=== PATIENT | female | born 1965 | race Caucasian/White ===

== ENCOUNTER 2016-10-11 10:25 | Emergency (ER) | payer OTHER ==
[2016-10-11] MEDS ORDERED: Albuterol-Ipratrop 3 mg / 0.5 (3 ml) UD ONE (10:59)
[2016-10-11] MEDS ORDERED: Albuterol-Ipratrop 3 mg / 0.5 (3 ml) UD INH STA (11:26)
[2016-10-11] MEDS ORDERED: Aluminum Hydroxide/Magnesium Hydroxide Susp (30 mL) PO STA (11:27)
[2016-10-11] MEDS ORDERED: Aluminum Hydroxide/Magnesium Hydroxide Susp (30 mL) ONE (11:33)
--- NOTE | 2016-10-11 12:11 | RAD ---
HISTORY: cough pleuritic cp COMPARISON: None available TECHNIQUE: Chest PA and lateral FINDINGS: Examination limited by habitus. LUNGS: No focal consolidation. Please note that chest x-ray has limited sensitivity for the detection of pulmonary masses. PLEURA: No significant pleural effusion identified. No definite pneumothorax . CARDIOVASCULAR: Cardiomegaly. OSSEOUS STRUCTURES: Degenerative changes of the spine. VISUALIZED UPPER ABDOMEN: Mild elevation of the right hemidiaphragm. OTHER FINDINGS: None. IMPRESSION: Cardiomegaly.
[2016-10-11 12:36] VITALS: TEMP 97.6
[2016-10-11] MEDS ORDERED: Sodium Chloride 0.9% Inh Soln (3mL) UD INH ONE (12:49)
--- NOTE | 2016-10-11 13:14 | C.PDOC ---
History Of Present Illness 51 yr old female with PMHx of HTN, presents to the ER with complaints of cough, SOB while coughing, chest pain, chest tightness and back pain for the past 2 days. Patient also reports of feeling warm and myalgias. Patient states she has not taken any medicine for the symptoms and denies any sick contact. Also denies fever, chills, nausea, vomiting, abdominal pain, diarrhea, dysuria, weakness or numbness. Time Seen by Provider: 10/11/16 11:13 Chief Complaint (Nursing): Cough, Cold, Congestion History Per: Patient History/Exam Limitations: no limitations Onset/Duration Of Symptoms: Days (2) Current Symptoms Are (Timing): Still Present Sick Contacts (Context): None Past Medical History Reviewed: Historical Data, Nursing Documentation, Vital Signs Vital Signs: Last Vital Signs Temp 97.6 F 10/11/16 12:36 Pulse 78 10/11/16 14:15 Resp 18 10/11/16 14:15 BP 142/75 10/11/16 14:15 Pulse Ox 97 10/11/16 15:03 - Medical History PMH: Anxiety, HTN, Hyperlipidemia (DIET CONTROLLED PER PT) Family History: States: No Known Family Hx - Social History Hx Alcohol Use: No Hx Substance Use: No - Immunization History Hx Tetanus Toxoid Vaccination: No Hx Influenza Vaccination: No Hx Pneumococcal Vaccination: No Review Of Systems Except As Marked, All Systems Reviewed And Found Negative. Constitutional: Negative for: Fever, Chills Cardiovascular: Positive for: Chest Pain, Other ((+) Chest tightness) Respiratory: Positive for: Cough, Shortness of Breath (While coughing ) Gastrointestinal: Negative for: Nausea, Vomiting, Abdominal Pain, Diarrhea Genitourinary: Negative for: Dysuria Musculoskeletal: Positive for: Back Pain Neurological: Negative for: Weakness, Numbness Physical Exam - Physical Exam Appears: Well, Non-toxic, Other (Uncomfortable) Skin: Warm, Dry, No Rash Head: Atraumatic, Normacephalic Ear(s): Bilateral: Normal Oral Mucosa: Moist Throat: Normal, No Erythema, No Exudate, No Drooling Neck: Normal, Normal ROM, Supple Chest: Symmetrical, Tenderness (Reproducible sternal tenderness.) Cardiovascular: Rhythm Regular, Other (tachycardic) Respiratory: Normal Breath Sounds, No Rales, No Rhonchi, No Stridor, No Wheezing Gastrointestinal/Abdominal: Normal Exam, Soft, No Tenderness, No Guarding, No Rebound Extremity: Normal ROM, No Swelling Neurological/Psych: Oriented x3, Normal Speech, Normal Motor ED Course And Treatment O2 Sat by Pulse Oximetry: 97 - Other Rad CXR X-Ray: Viewed By Me, Read By Radiologist Interpretation: HISTORY: cough pleuritic cp. COMPARISON: None available. TECHNIQUE: Chest PA and lateral. FINDINGS: Examination limited by habitus. LUNGS: No focal consolidation. Please note that chest x-ray has limited sensitivity for the detection of pulmonary masses. PLEURA: No significant pleural effusion identified. No definite pneumothorax . CARDIOVASCULAR: Cardiomegaly. OSSEOUS STRUCTURES: Degenerative changes of the spine. VISUALIZED UPPER ABDOMEN: Mild elevation of the right hemidiaphragm. OTHER FINDINGS: None. IMPRESSION: Cardiomegaly. Medical Decision Making Medical Decision Making: PLAN: * CXR * Albuterol INH * Maalox PO * Tylenol PO * Sodium Chloride INH NOTE: pt is feeling much better after tylenol and saline and neb treatments. lungs remain cta b/l. cxr neg for infliltrate. will d/c pt with tylenol, cough medication and albuterol and f/u with pmd. Disposition Counseled Patient/Family Regarding: Studies Performed, Diagnosis, Need For Followup, Rx Given - Disposition Disposition: HOME/ ROUTINE Disposition Time: 14:01 Condition: IMPROVED Additional Instructions: Follow up with your doctor in 1-2 days. Drink more fluids. Take Tylenol 1000 mg by mouth every 6-8 hours for pain or fever. Return to ER for any worsening symptoms. Prescriptions: Acetaminophen [Tylenol Extra Strength] 1,000 mg PO TID #50 tablet Albuterol HFA [Ventolin HFA 90 mcg/actuation (8 g)] 2 puff IH TID PRN #1 inh PRN Reason: Cough Benzonatate [Tessalon Perle] 100 mg PO TID #12 capsule Instructions: Upper Respiratory Infection (ED) Forms: Gen Discharge Inst Turkish Print Language: SAUDI ARABIAN - Clinical Impression Clinical Impression: Upper respiratory infection - PA / TELECOMMUNICATION OPERATOR / Resident Statement MD/DO has reviewed & agrees with the documentation as recorded. - Scribe Statement The provider has reviewed the documentation as recorded by the Scribe Vilma Ordoñez All medical record entries made by the Scribe were at my direction and personally dictated by me. I have reviewed the chart and agree that the record accurately reflects my personal performance of the history, physical exam, medical decision making, and the department course for this patient. I have also personally directed, reviewed, and agree with the discharge instructions and disposition.
[2016-10-11 14:16] VITALS: BP 142/75; PULSE 78; RESP 18
[2016-10-11 14:59] VITALS: O2SAT 97
== END 2016-10-11 14:16 | disposition home or self-care (01) ==
LOC: C.ER 10:25
DX: J06.9 Acute upper respiratory infection, unspecified (principal)